=== PATIENT | male | born 1990 | race Two or more races ===

== ENCOUNTER 2016-12-20 19:21 | Observation (INO) | payer OTHER ==
[~2016-12-20] VITALS: Ht 175.3 cm; Wt 72.8 kg
[2016-12-20] MEDS ORDERED: LORazepam 0.5MG TABLET ONE ×2 (20:55→22:51)
[2016-12-20] MEDS: LORazepam 0.5MG TABLET PO ONE ×3 (20:57→22:52)
[2016-12-21] MEDS ORDERED: ZIPRASIDONE 20 MG INJ IM ONE (00:30)
[2016-12-21] MEDS ORDERED: OLANZAPINE 10 MG TABLET PO ONE (01:30)
[2016-12-21 01:41] LABS: DAU SCREEN DISCLAIMER
[2016-12-21 02:16] LABS: HEMOGLOBIN 16.8 g/dL (13.7-18.0); WHITE BLOOD COUNT 10.2 x10^3/uL (3.4-10)
[2016-12-21 02:29] LABS: BLOOD UREA NITROGEN 15 mg/dL (7-18)
[2016-12-21 02:30] LABS: ACETAMINOPHEN < 2 mcg/mL (10-30)
[2016-12-21] MEDS ORDERED: HALOPERIDOL 5 MG/ML IM PRN (05:00)
[2016-12-21] MEDS ORDERED: LORazepam 2 MG/ML, 1ML IM PRN (05:00)
[2016-12-21] MEDS ORDERED: BENZTROPINE 1 MG TABLET PO PRN (05:00)
[2016-12-21 05:15] VITALS: BP 120/72
[2016-12-21 08:50] VITALS: BP 108/72
[2016-12-21] MEDS ORDERED: HALOPERIDOL 5 MG TABLET PO PRN (17:30)
[2016-12-21] MEDS ORDERED: LORazepam 1MG TABLET PO PRN (17:30)
[2016-12-21 19:23] VITALS: BP 111/69
[2016-12-21] MEDS: ACETAMINOPHEN 325 MG TABLET PO PRN (19:51)
[2016-12-21] MEDS ORDERED: TEMAZEPAM 15 MG CAPSULE ONE (21:04)
[2016-12-21] MEDS: TEMAZEPAM 15 MG CAPSULE PO PRN (21:06)
[2016-12-22 08:14] VITALS: BP 115/70
[2016-12-22] MEDS: ACETAMINOPHEN 325 MG TABLET PO PRN (09:26)
[2016-12-22 20:25] VITALS: BP 139/91
[2016-12-22] MEDS: TEMAZEPAM 15 MG CAPSULE PO PRN (21:12)
[2016-12-23 07:30] VITALS: BP 113/64
[2016-12-23] MEDS: ACETAMINOPHEN 325 MG TABLET PO PRN (09:57)
[2016-12-23] MEDS ORDERED: ZIPRASIDONE 20 MG INJ IM ONE (15:30)
== END 2016-12-23 15:30 ==
LOC: ED 23:59 → INTOOBSV 12-21 03:40 → EDIP 12-21 03:40 → 3E 12-21 05:12
PROVIDERS: ADMIT Internal Medicine; ATTEND Internal Medicine
DX: F23 Brief psychotic disorder (principal); F41.1 Generalized anxiety disorder; F43.12 Post-traumatic stress disorder, chronic; R45.851 Suicidal ideations; F22 Delusional disorders; Z91.19 Patient's noncompliance with other medical treatment and regimen
CPT/HCPCS: 36415; 80048; 80307; 80329; 82040; 85025; 99285; G0378; G0480